=== PATIENT | female | born 1955 | race Caucasian/White ===

== ENCOUNTER → 2016-06-03 | Outpatient (CLI) | payer BC ==
--- NOTE | 2016-06-03 15:37 | MAMMOGRAPHY REPORT ---
BILATERAL DIGITAL DIAGNOSTIC MAMMOGRAM TOMOSYNTHESIS WITH CAD: 06/03/2016 CLINICAL HISTORY: Six-month follow-up of left breast calcifications. TECHNIQUE: Breast tomosynthesis in addition to standard 2D mammography was performed. Current study was also evaluated with a Computer Aided Detection (CAD) system. Bilateral CC and MLO 2-D and fabiano synthesis images and spot magnification left CC and ML views were obtained. COMPARISON: Comparison is made to exams dated: 12/02/2015 mammogram, 05/16/2014 mammogram - [facility], 03/15/2013 mammogram, 03/14/2012 mammogram, and 03/14/2011 mammogram. BREAST COMPOSITION: There are scattered areas of fibroglandular density in both breasts. FINDINGS: There are stable postsurgical changes in the left upper outer quadrant, including stable density, architectural distortion, surgical clips, and coarse benign dystrophic calcifications at th e surgical bed. Again noted is a tiny 1 mm cluster of calcifications in the left lower inner quadra nt, which is stable dating back to spot magnification views dated 05/18/2015, and is also stable comp ared to full-field views from the May 2014 exam. The calcifications are close to the skin on th e cc and MLO tomosynthesis images, and may actually be dermal in origin. Given the benign morpholog y and long-term stability, the calcifications are benign. The remainder of both breasts are stable compared to prior exams, without suspicious masses, calcifications, or areas of architectural distor tion noted. IMPRESSION: ACR BI-RADS CATEGORY 2: BENIGN Small 1 mm cluster of benign-appearing calcifications in the left lower inner quadrant is stable criss ing back to the 2014 exam, and considered benign given the morphology and stability. There is no ma mmographic evidence of malignancy in either breast. A 1 year screening mammogram is recommended. Th e patient has been verbally notified of the results. Approximately 10% of breast cancers are not detected with mammography. A negative mammographic repor t should not delay biopsy if a clinically suggestive mass is present. María Lynn M.D. /:06/03/2016 14:15:53 Housekeeping Manager: Janneth Gu, [facility] letter sent: Normal 1/2 BI-RADS Code: ACR BI-RADS Category 2: Benign
== END | disposition home or self-care (01) ==
LOC: C.MAMM 13:35
PROVIDERS: ATTEND Nurse Practitioner Obstetrics & Gynecology
DX: R92.1 Mammographic calcification found on diagnostic imaging of breast (principal)

== ENCOUNTER → 2017-06-06 | Outpatient (CLI) | payer BC ==
--- NOTE | 2017-06-06 14:40 | MAMMOGRAPHY REPORT ---
BILATERAL DIGITAL DIAGNOSTIC MAMMOGRAM TOMOSYNTHESIS WITH CAD: 06/06/2017 CLINICAL HISTORY: Personal history of left breast cancer. The patient reports no current complaints. TECHNIQUE: Breast tomosynthesis in addition to standard 2D mammography was performed. Current study was also evaluated with a Computer Aided Detection (CAD) system. Bilateral CC and MLO 2-D and tomosy nthesis images were obtained. COMPARISON: Comparison is made to exams dated: 06/03/2016 mammogram, 12/02/2015 mammogram, 05/18/2015 m ammogram, 05/16/2014 mammogram - [facility], 03/15/2013 mammogram, and 03/14/2012 mammo gram. BREAST COMPOSITION: There are scattered areas of fibroglandular density in both breasts. FINDINGS: There are no suspicious masses, calcifications, or areas of architectural distortion noted in either breast. There has been no significant interval change compared to prior exams. There are s table postsurgical changes in the left upper outer quadrant, including stable density, architectural distortion, surgical clips, and coarse benign dystrophic calcifications at the surgical bed. Other s cattered benign-appearing left breast calcifications are not significantly changed. IMPRESSION: ACR BI-RADS CATEGORY 2: BENIGN There is no mammographic evidence of malignancy. A 1 year screening mammogram is recommended. The pa tient has been verbally notified of the results. Approximately 10% of breast cancers are not detected with mammography. A negative mammographic report should not delay biopsy if a clinically suggestive mass is present. María Lynn M.D. ah/:06/06/2017 08:13:18 Direct Service Professional: Lorie DECKER(Ulises)(M), [facility] letter sent: Normal 1/2 BI-RADS Code: ACR BI-RADS Category 2: Benign
== END | disposition home or self-care (01) ==
LOC: C.MAMM 07:52
PROVIDERS: ATTEND Nurse Practitioner Obstetrics & Gynecology
DX: Z12.31 Encounter for screening mammogram for malignant neoplasm of breast (principal); Z85.3 Personal history of malignant neoplasm of breast